=== PATIENT | male | born 1970 | race Caucasian/White ===

== ENCOUNTER 2022-06-23 05:30 | Day surgery (SDC) | payer BC ==
[2022-06-16 11:56] LABS: BASOPHILS # (AUTO) 0.1 X10'3 (0-0.2); BASOPHILS % (AUTO) 0.7 % (0-1); EOSINOPHILS # (AUTO) 0.4 X10'3 (0-0.9); EOSINOPHILS % (AUTO) 4.8 % (0-6); LYMPHOCYTES % (AUTO) 25.9 % (21-51); MEAN CORPUSCULAR HEMOGLOBIN 29.9 PG (27.0-31.0); MEAN PLATELET VOLUME 8.8 FL (7.4-10.4); MONOCYTES # (AUTO) 0.4 X10'3 (0-0.9); NEUTROPHILS % (AUTO) 63.6 % (42-75); PRE OP HEMATOCRIT 43.6 % (42.0-52.0); PRE OP HEMOGLOBIN 14.8 g/dL (14.0-17.9); PRE OP PLATELET COUNT 298 X10'3 (140-440); RED BLOOD COUNT 4.95 X10'6 (4.70-6.10); RED CELL DISTRIBUTION WIDTH 13.9 % (11.5-14.5)
[2022-06-16 12:05] LABS: ALBUMIN 4.1 G/DL (3.4-5.0); ALBUMIN/GLOBULIN RATIO 1.1 (1.1-1.5); ALKALINE PHOSPHATASE 93 IU/L (46-116); BLOOD UREA NITROGEN 12 MG/DL (7-18); BUN/CREATININE RATIO 15.4 (5.4-32.0); CHLORIDE 105 MMOL/L (99-107); CREATININE 0.78 MG/DL (0.60-1.10); PRE OP ALT 38 U/L (30-65); PRE OP ANION GAP 9 (8-16); PRE OP AST 21 U/L (10-37); PRE OP BILIRUB, TOTAL 0.4 MG/DL (0.0-1.0); PRE OP GLUCOSE 94 MG/DL (70-104); PRE OP POTASSIUM 4.5 MMOL/L (3.4-5.1); PRE OP SODIUM 142 MMOL/L (135-145); TOTAL CARBON DIOXIDE 27.7 MMOL/L (24-32); eGFR > 90 ML/MIN
[2022-06-23] VITALS (22 sets, daily range): BP systolic 96–145; BP diastolic 59–86
[~2022-06-23] VITALS: Ht 190.5 cm; Wt 89.6 kg
[~2022-06-23 05:30] MED LIST: NO HOME MEDS; acetaminophen 325mg tablet PO ONE; ceFAZolin inj. 2,000 MG in dextrose 5%-water 100 ML IV ONE; celeCOXIB 100mg capsule PO ONE; famotidine 20mg tablet PO ONE; gabapentin 300mg capsule PO ONE; metoclopramide 5 mg/ml inj IV ONE; oxyCODONE SR 10mg (sust. release) tab -2 tabs (20mg) PO ONE; tranexamic acid inj. 1,000 MG in 0.7% saline 100 ML PMX IV ONE; vancomycin 1,500 MG in NS 300ml IV soln IV ONE
[2022-06-23] MEDS: ringers solution, lacted 1,000 ML IV SCH ×4 (05:58→19:23)
--- NOTE | 2022-06-23 06:44 | NUR ---
CSM + AND PATIENT HAS WATCHED DVD VIDEO. NO OINTMENT USED OR ORDERED
[2022-06-23] MEDS ORDERED: bisacodyl 10mg suppository rectal RC PRN (06:45)
[2022-06-23] MEDS ORDERED: naloxone 0.4 mg/ml inj IV PRN (06:45)
[2022-06-23] MEDS ORDERED: diphenhydrAMINE 25mg capsule PO PRN ×2 (06:45)
[2022-06-23] MEDS ORDERED: potassium cl 20mEq in 1/2 NS 1,000 ML IV SCH (06:45)
[2022-06-23] MEDS ORDERED: oxyCODONE/APAP 10/325mg tablet PO PRN ×2 (06:45)
[2022-06-23] MEDS ORDERED: ondansetron/PF 4mg/2ml inj IV PRN ×2 (06:45→08:00)
[2022-06-23] MEDS ORDERED: HYDROmorphone inj. 0.5 MG/0.5 ML DISP.SYRIN IV PRN (06:45)
[2022-06-23] MEDS ORDERED: magnesium hydroxide 30ml (MOM) UD suspension PO PRN (06:45)
[2022-06-23] MEDS ORDERED: HYDROmorphone 1 mg/ml syringe IV PRN (06:45)
[2022-06-23] MEDS ORDERED: epiNEPHrine 1 mg/ml inj ONE (06:50)
[2022-06-23] MEDS ORDERED: ketorolac trometh. 30mg/ml inj. ONE (06:50)
[2022-06-23] MEDS ORDERED: cloNIDine hcl/PF 100mcg/ml inj ONE (06:50)
[2022-06-23] MEDS ORDERED: ROPIVAcaine 0.5% (5mg/ml) 30ml vial ONE ×2 (06:51→08:58)
[2022-06-23] MEDS ORDERED: vancomycin 1,000mg inj ONE (06:51)
[2022-06-23] MEDS ORDERED: fentaNYL/PF 50MCG/1 ML 2ML syringe ONE (07:19)
[2022-06-23] MEDS ORDERED: midazolam 1 mg/ML 2ml injection ONE (07:20)
[2022-06-23] MEDS ORDERED: propofol inj 20 ML IV ONE ×2 (07:42)
[2022-06-23] MEDS ORDERED: morphine 2 MG/ML inj. syringe IV PRN (08:00)
[2022-06-23] MEDS ORDERED: proCHLORperazine 10 MG/2 ml inj IV PRN (08:00)
[2022-06-23] MEDS ORDERED: ROPIVAcaine 0.2% (10 MG/5 ML) BOLUS INJECTION ADDCANAL PRN (08:00)
[2022-06-23] MEDS ORDERED: ascorbic acid 500mg tablet PO SCH (08:00)
[2022-06-23] MEDS ORDERED: morphine 4 MG/ML inj SYRINge IV PRN (08:00)
[2022-06-23] MEDS ORDERED: ketorolac trometh. 30mg/ml inj. IV ONE (08:00)
[2022-06-23] MEDS ORDERED: ringers solution, lacted 1,000 ML IV SCH (08:00)
[2022-06-23] MEDS ORDERED: multivitamins, therapeutics tablet PO SCH (08:00)
[2022-06-23] MEDS ORDERED: gabapentin 300mg capsule PO SCH (08:00)
[2022-06-23] MEDS ORDERED: acetaminophen 1,000mg/100ml IV 100 ML IV PRN (08:00)
[2022-06-23] MEDS ORDERED: meperidine/PF 25mg/ml syringe IV PRN ×3 (08:00)
[2022-06-23] MEDS ORDERED: aspirin 325mg tablet PO SCH (08:30)
--- NOTE | 2022-06-23 09:04 | NUR ---
Received from OR via HOSPITAL BED , accompanied by Anesthesiologist DR BE and report given by Anesthesiolgist. PT PRESENTS WITH 18G RIGHT WRIST. LEFT DIATAL PULSE FOUND WITH DOPPLER. LEFT KNEE WITH WRAP, ALESSIA DRESSING, ON-Q READY AND POWDER PACK. VSS. Addendum: 06/23/22 at 0931 by Lolly Cano RN, RN Amended: Links added.
[2022-06-23] MEDS: ROPIVAcaine 0.2%/PF PUMP/bolus 545 ML ADDCANAL SCH (10:08)
--- NOTE | 2022-06-23 10:27 | NUR ---
Report received from Lolly PAREKH from recovery. Awaiting patient arrival.
--- NOTE | 2022-06-23 10:44 | NUR ---
Report called to receiving nurse MARIE PAREKH. Transferred via HOSPITAL BED TO ROOM 4014A WITH PT . PT Belongings 1 BAG TO ROOM 4014A. BED IN LOW LOCKED POSITION, PT GIVEN CALL LIGHT AND HOOKED UP TO WILLIE SALAZAR RN AT BEDSIDE. Special Issues communicated to receiving nurse. Addendum: 06/23/22 at 1056 by Lolly Cano RN RN Amended: Links added.
--- NOTE | 2022-06-23 10:52 | NUR ---
Patient has arrived to floor, per Lolly PAREKH, Patient came in bradycardic in the 50's and had dropped into 30's. He is asymptomatic and she says it has not been a concern at this time. Will continue to monitor. No signs of distress, Patient is alert, oriented and anxious to go home but very pleasant. S/O Mikayla at bedside
[2022-06-23] MEDS: gabapentin 300mg capsule PO SCH ×2 (11:55→21:00)
[2022-06-23] MEDS ORDERED: tranexamic acid inj. 900 MG in normal saline 100ml IV soln 100 ML IV ONE (12:00)
[2022-06-23] MEDS: potassium cl 20mEq in 1/2 NS 1,000 ML IV SCH ×2 (13:24→17:21)
[2022-06-23] MEDS: cefazolin/dext.iso 2gm/100ml 100 ML IV SCH (17:25)
--- NOTE | 2022-06-23 18:00 | NUR ---
I have reviewed and agree with all interventions, assessments performed, and documention by Jen Mccollum LVN.
[2022-06-23] MEDS: acetaminophen 325mg tablet PO PRN (19:52)
[2022-06-23] MEDS ORDERED: VANCOMYCIN 1,500MG inj. 1,500 MG in dextrose 5% water 500ml 300 ML IV ONE (20:00)
[2022-06-23] MEDS: ascorbic acid 500mg tablet PO SCH (20:00)
[2022-06-23] MEDS ORDERED: sennosides 8.6mg tablet PO SCH (21:00)
[2022-06-24] MEDS: cefazolin/dext.iso 2gm/100ml 100 ML IV SCH
[2022-06-24] MEDS: acetaminophen 325mg tablet PO PRN ×2 (00:44→06:57)
[2022-06-24] MEDS: potassium cl 20mEq in 1/2 NS 1,000 ML IV SCH ×2 (01:00→09:21)
[2022-06-24 02:00] VITALS: BP 131/77
[2022-06-24] MEDS: ringers solution, lacted 1,000 ML IV SCH (03:37)
[2022-06-24 06:00] VITALS: BP 131/68
[2022-06-24 06:09] LABS: ANION GAP 8 (8-16); CHLORIDE 105 MMOL/L (99-107); POTASSIUM 4.5 MMOL/L (3.5-5.1); SODIUM 139 MMOL/L (135-145); TOTAL CARBON DIOXIDE 26.5 MMOL/L (24-32)
[2022-06-24 06:11] LABS: BASOPHILS # (AUTO) 0.1 X10'3 (0-0.2); BASOPHILS % (AUTO) 0.5 % (0-1); EOSINOPHILS # (AUTO) 0.8 X10'3 (0-0.9); EOSINOPHILS % (AUTO) 6.2 % (0-6); HEMATOCRIT 39.9 % (42.0-52.0); HEMOGLOBIN 13.7 g/dl (14.0-17.9); LYMPHOCYTES # (AUTO) 1.8 X10'3 (1.1-4.8); LYMPHOCYTES % (AUTO) 14.8 % (21-51); MEAN CORPUSCULAR HEMOGLOBIN 29.8 PG (27.0-31.0); MEAN CORPUSCULAR HGB CONC 34.3 g/dL (33.0-36.5); MEAN CORPUSCULAR VOLUME 87.1 FL (78-98); MEAN PLATELET VOLUME 9.3 FL (7.4-10.4); MONOCYTES # (AUTO) 0.9 X10'3 (0-0.9); MONOCYTES % (AUTO) 7.5 % (2-12); NEUTROPHILS # (AUTO) 8.7 X10'3 (1.8-7.7); PLATELET COUNT 239 X10'3 (140-440); RED BLOOD COUNT 4.59 X10'6 (4.70-6.10); RED CELL DISTRIBUTION WIDTH 13.9 % (11.5-14.5); WHITE BLOOD COUNT 12.2 X10'3 (4.5-11.0)
--- NOTE | 2022-06-24 06:15 | NUR ---
Patient in room ORTHO 4014. I have received report from Madhavi and had the opportunity to ask questions and assume patient care.
[2022-06-24] MEDS ORDERED: multivitamins, therapeutics tablet PO SCH (08:00)
[2022-06-24] MEDS: gabapentin 300mg capsule PO SCH (08:15)
[2022-06-24] MEDS: ascorbic acid 500mg tablet PO SCH (08:16)
[2022-06-24] MEDS ORDERED: aspirin 325mg tablet PO SCH (08:30)
[2022-06-24 10:00] VITALS: BP 144/86
[2022-06-24] MEDS ORDERED: ketorolac trometh. 30mg/ml inj. IV ONE (11:30)
--- NOTE | 2022-06-24 11:58 | NUR ---
Joint surgery consult: Pt s/p L knee surgery this admit per EMR. Pt seen by RD for written/verbal high protein diet ed w/ RD contact information provided. Pt is vegetarian; BARTOLO reviewed appropriate multivitamin supplementation for wound healing/vegetarian needs and encouraged pt to contact dietitian's office if further questions/concerns. Addendum: 06/24/22 at [address] Amended: Links added.
[2022-06-24] MEDS: ROPIVAcaine 0.2%/PF PUMP/bolus 545 ML ADDCANAL SCH (12:09)
--- NOTE | 2022-06-24 12:10 | NUR ---
Reviewed discharge instructions with pt and spouse. Pt verbalized understanding. One-to-one teaching with the On-Q pump, removal, dressings and ALESSIA dressing. Pt's On-Q was changed immediately prior to discharge. Reviewed medications, next dose due and usage. Pt was dressed and wheeled downstairs to be driven home by his spouse.
[2022-06-24] MEDS ORDERED: celeCOXIB 100mg capsule PO SCH (20:00)
== END 2022-06-24 12:10 | disposition home or self-care (01) ==
LOC: PAS 05:30 → ORTHO 4S 06:47 → PAS 06-24 12:10
PROVIDERS: ATTEND Orthopaedic Surgery
DX: M17.12 Unilateral primary osteoarthritis, left knee (principal); G89.18 Other acute postprocedural pain; Z79.899 Other long term (current) drug therapy; Z98.890 Other specified postprocedural states; M21.062 Valgus deformity, not elsewhere classified, left knee; Z79.82 Long term (current) use of aspirin
CPT/HCPCS: 27447; 36415; 64447; 73560; 76942; 80051; 80053; 82948; 85025; 86885; 86900; 86901; 87081; 87811; 97116; 97161; 97530; C1713; C1776; J0131; J0171; J0690; J0735; J1885; J2250; J2405; J2704; J2765; J2795; J3010; J3370; J3480; J3490; J7030; J7040; J7060; J7120; Z7506; Z7508; Z7512; A4215; A7000; G0378